=== PATIENT | male | born 1940 | race Caucasian/White ===

== ENCOUNTER → 2017-05-19 | Outpatient (CLI) | payer MEDICARE ==
[~2017-05-19] MED LIST: IOHEXOL 300 MG/ML 75 ML VIAL. IV ONE
[2017-05-19 17:27] LABS: CREATININE 1.4 mg/dL (0.7-1.3); GFR 49.4
--- NOTE | 2017-05-19 18:38 | RAD ---
Chest CTA History: Shortness of air, cough for 3 weeks Technique: After bolus of intravenous contrast, CT imaging was performed of the chest. Multiplanar reconstruction images to include MIP reconstruction images are submitted. Exposure: One or more of the following individualized dose reduction techniques were utilized for this examination: 1. Automated exposure control 2. Adjustment of the mA and/or kV according to patient size 3. Use of iterative reconstruction technique. Contrast: 60 cc Omnipaque 300 Comparison: None Findings: [ ] There is some motion degradation. There is somewhat suboptimal contrast opacification of the more distal and smaller branches of the pulmonary arteries. No convincing pulmonary embolism is identified. There is some mild atelectasis/very minimal consolidation with air bronchograms left lower lobe near the lung base. There is no significant pleural fluid. There is no pneumothorax. There is coronary calcification. Heart is enlarged. Thoracic aortic caliber is within normal limits without intraluminal flap. No significantly enlarged nodes are identified of the chest. Major airways are patent. Impression: 1. No convincing pulmonary embolism is identified, somewhat limited accurate evaluation of the more distal and smaller branches. There is some mild atelectasis/very minimal consolidation with air bronchograms left lower lobe near the base. 2. There is coronary calcification. Heart is enlarged. Electronically signed by: Alfonso Kay MD (05/19/2017 6:35 PM) [facility]
== END | disposition home or self-care (01) ==
LOC: RAD 16:37
PROVIDERS: ATTEND Family Medicine
DX: I51.7 Cardiomegaly (principal); I25.10 Atherosclerotic heart disease of native coronary artery without angina pectoris; I10 Essential (primary) hypertension
CPT/HCPCS: 36415; 71275; 82565; Q9967

== ENCOUNTER → 2017-10-14 | Outpatient (CLI) | payer MEDICARE, BC ==
--- NOTE | 2017-10-14 14:38 | RAD ---
Examination: Right Lower Extremity Venous Doppler Ultrasound History: Right leg swellingfor 3 weeks Comparison: None Procedure: Billingsley scale, color flow 2D and spectal waveform analysis images are obtained with and without compression in the area of the common femoral vein, superficial femoral vein - femoral vein junction, main femoral vein (superficial femoral vein) and popliteal vein. Veins of the proximal calf are also imaged. Findings: There is normal duplex flow, color flow and compressibility of all visualized vein segments. No evidence of deep venous thrombus is present. Impression: No evidence of DVT in the visualized right lower extremity venous system. Electronically signed by: Lavon Ho MD (10/14/2017 2:34 PM) [id number]
== END | disposition home or self-care (01) ==
LOC: US 12:35
PROVIDERS: ATTEND Family Medicine
DX: M79.89 Other specified soft tissue disorders (principal); I10 Essential (primary) hypertension; I25.10 Atherosclerotic heart disease of native coronary artery without angina pectoris
CPT/HCPCS: 93971

== ENCOUNTER → 2017-10-28 | Outpatient (CLI) | payer MEDICARE, BC ==
[2017-10-28 08:39] LABS: HEMATOCRIT 37.6 % (39.0-53.0); HEMOGLOBIN 12.8 g/dL (13.0-17.5)
[2017-10-28 08:55] LABS: ALBUMIN 3.3 g/dL (3.4-5.0); CALCIUM 9.4 mg/dL (8.5-10.1); CREATININE 1.7 mg/dL (0.7-1.3); GFR 39.5; MAGNESIUM 1.8 mg/dL (1.8-2.4); PHOSPHORUS 3.1 mg/dL (2.6-4.7); POTASSIUM 4.3 mmol/L (3.5-5.1)
[2017-10-28 21:12] LABS: MICRO CREAT RATIO 4.3 mg/g creat (0.0-30.0); MICROALB RD UR 4.7 ug/mL (Not Estab.)
== END | disposition home or self-care (01) ==
LOC: LAB 07:36
PROVIDERS: ATTEND Internal Medicine Nephrology
DX: I12.9 Hypertensive chronic kidney disease with stage 1 through stage 4 chronic kidney disease, or unspecified chronic kidney disease (principal); N18.3 Chronic kidney disease, stage 3 (moderate); N14.0 Analgesic nephropathy; I25.10 Atherosclerotic heart disease of native coronary artery without angina pectoris; R60.0 Localized edema; Z68.35 Body mass index [BMI] 35.0-35.9, adult
CPT/HCPCS: 36415; 80069; 82043; 82570; 83735; 85014; 85018

== ENCOUNTER → 2018-05-11 | Outpatient (CLI) | payer MEDICARE, BC ==
[2018-05-11 10:56] LABS: CALCIUM 9.6 mg/dL (8.5-10.1); CREATININE 1.5 mg/dL (0.7-1.3); GFR 45.5; POTASSIUM 4.2 mmol/L (3.5-5.1)
--- NOTE | 2018-05-11 12:29 | RAD ---
MR#: [id number] Date of Study: 05/11/2018 Ordering Physician: RAHUL FARRELL, Referring Physician: RAHUL FARRELL Tech: Kaylah Brunson RDMS RVT APPROVED REPORT Patient Location: OUT-PATIENT Indications AAA Technically nondiagnostic abdominal aortic ultrasound scan due to body habitus and bowel gas. Duplex Results A/PTransverseLongitudinal Proximal Aorta 3.7cm Doppler VelocityWaveform Proximal Aorta 79.5 cm/secTriphasic Critical Notification Critical Value: No <Conclusion> Nondiagnostic ultrasound of the abdominal aorta for evaluation of aneurysm due to body habitus and анна wel gas. Signed by : Rahul Farrell, Electronically Approved : 05/11/2018 12:28:43
== END | disposition home or self-care (01) ==
LOC: US 10:01
PROVIDERS: ATTEND Internal Medicine Cardiovascular Disease
DX: I71.4 Abdominal aortic aneurysm, without rupture (principal); I12.9 Hypertensive chronic kidney disease with stage 1 through stage 4 chronic kidney disease, or unspecified chronic kidney disease; N18.3 Chronic kidney disease, stage 3 (moderate)
CPT/HCPCS: 36415; 76770; 80048; 80061; 83880

== ENCOUNTER → 2018-10-28 | Outpatient (CLI) | payer MEDICARE, BC ==
[2018-10-28 09:00] LABS: BASO % 0 % (0-3); EOS # 0.2 x10^3/uL (0.0-0.7); EOS % 3 % (0-3); HEMATOCRIT 38.8 % (39.0-53.0); HEMOGLOBIN 12.9 g/dL (13.0-17.5); LYMPH # 1.4 x10^3/uL (1.0-4.8); LYMPH % 28 % (24-48); MEAN CORPUSCULAR HEMOGLOBIN 33 pg (25-35); MEAN CORPUSCULAR HGB CONC 33 g/dL (31-37); MEAN CORPUSCULAR VOLUME 98 fL (79-100); MONO # 0.3 x10^3/uL (0.0-1.1); MONO % 7 % (0-9); NEUT % 62 % (31-73); PLATELET COUNT 232 x10^3/uL (140-400); RED BLOOD COUNT 3.95 x10^6/uL (4.30-5.70); RED CELL DISTRIBUTION WIDTH 14.3 % (11.5-14.5); WHITE BLOOD COUNT 4.8 x10^3/uL (4.0-11.0)
[2018-10-28 09:09] LABS: ALBUMIN 3.5 g/dL (3.4-5.0); CREATININE 1.5 mg/dL (0.7-1.3); GFR 45.5; MAGNESIUM 1.7 mg/dL (1.8-2.4); PHOSPHORUS 2.4 mg/dL (2.6-4.7); POTASSIUM 4.2 mmol/L (3.5-5.1)
[2018-10-28 13:07] LABS: CREATININE,RANDOM URINE 117.2 mg/dL (Not Establ.)
[2018-10-29 09:07] LABS: CALCIUM PTH 9.5 mg/dL (8.6-10.2); CREATININE PTH 1.38 mg/dL (0.76-1.27); PTH INTACT 30 pg/mL (15-65)
== END | disposition home or self-care (01) ==
LOC: LAB 07:55
PROVIDERS: ATTEND Internal Medicine Nephrology
DX: I12.9 Hypertensive chronic kidney disease with stage 1 through stage 4 chronic kidney disease, or unspecified chronic kidney disease (principal); N18.3 Chronic kidney disease, stage 3 (moderate); N14.0 Analgesic nephropathy; R60.0 Localized edema; Z68.34 Body mass index [BMI] 34.0-34.9, adult
CPT/HCPCS: 36415; 80069; 82570; 83735; 83970; 84156; 85025

== ENCOUNTER → 2018-10-28 | Outpatient (CLI) | payer MEDICARE, BC ==
[2018-10-28 09:11] LABS: ALBUMIN 3.5 g/dL (3.4-5.0); CALCIUM 8.9 mg/dL (8.5-10.1); CREATININE 1.5 mg/dL (0.7-1.3); GFR 45.5; POTASSIUM 4.2 mmol/L (3.5-5.1); TOTAL BILIRUBIN 0.4 mg/dL (0.2-1.0)
== END | disposition home or self-care (01) ==
LOC: LAB 07:50
PROVIDERS: ATTEND Internal Medicine Cardiovascular Disease
DX: I10 Essential (primary) hypertension (principal)
CPT/HCPCS: 36415; 80053; 80061

== ENCOUNTER → 2019-11-09 | Outpatient (CLI) | payer MEDICARE ==
[2019-11-09 09:51] LABS: ALBUMIN 3.4 g/dL (3.4-5.0); CALCIUM 9.7 mg/dL (8.5-10.1); CREATININE 1.8 mg/dL (0.7-1.3); GFR 36.8; MAGNESIUM 1.7 mg/dL (1.8-2.4); PHOSPHORUS 2.7 mg/dL (2.6-4.7); POTASSIUM 4.5 mmol/L (3.5-5.1); URIC ACID 5.4 mg/dL (3.5-7.2)
[2019-11-09 10:19] LABS: HEMATOCRIT 38.2 % (39.0-53.0)
[2019-11-09 13:58] LABS: CREATININE,RANDOM URINE 118.5 mg/dL (Not Establ.)
[2019-11-10 01:07] LABS: CALCIUM PTH 9.9 mg/dL (8.6-10.2); CREATININE PTH 1.58 mg/dL (0.76-1.27); PTH INTACT 20 pg/mL (15-65)
[2019-11-10 05:08] LABS: MICROALB RD UR 10.9 ug/mL (Not Estab.)
== END | disposition home or self-care (01) ==
LOC: LAB 08:25
PROVIDERS: ATTEND Internal Medicine Nephrology
DX: N17.9 Acute kidney failure, unspecified (principal); I12.9 Hypertensive chronic kidney disease with stage 1 through stage 4 chronic kidney disease, or unspecified chronic kidney disease; N18.3 Chronic kidney disease, stage 3 (moderate); R80.9 Proteinuria, unspecified; N14.0 Analgesic nephropathy; Z68.36 Body mass index [BMI] 36.0-36.9, adult
CPT/HCPCS: 36415; 80069; 82043; 82306; 82570; 83735; 83970; 84156; 84550; 85014; 85018

== ENCOUNTER → 2019-12-01 | Outpatient (CLI) | payer MEDICARE ==
[~2019-12-01] MED LIST changes: +AMLO10TA8 PO; +ASPI81TA59 PO; +BUPIVACAINE MPF 0.25% 10 ML VIAL. ONE; +FENO145T3 PO; -IOHEXOL 300 MG/ML 75 ML VIAL. IV ONE; +LEVO88TA4 PO; +LIDOCAINE 1% PF 30 ML VIAL. ONE; +LORA10TA3 PO; +LOSA100T14 PO; +MAGN400C PO; +MIRA50TA PO; +MONT10TA80 PO; +MULT-690 PO; +OMEP20TA8 PO; +TAMS0.4C97 PO
[2019-12-01 10:47] VITALS: BP 146/71
== END | disposition home or self-care (01) ==
LOC: SURG 09:43
PROVIDERS: ATTEND Anesthesiology
DX: M47.816 Spondylosis without myelopathy or radiculopathy, lumbar region (principal); I12.9 Hypertensive chronic kidney disease with stage 1 through stage 4 chronic kidney disease, or unspecified chronic kidney disease; N18.3 Chronic kidney disease, stage 3 (moderate); Z79.82 Long term (current) use of aspirin; Z79.899 Other long term (current) drug therapy
CPT/HCPCS: 64493; 64494; J2001; J3490

== ENCOUNTER → 2019-12-22 | Outpatient (CLI) | payer MEDICARE ==
[~2019-12-22] MED LIST changes: +AMLO-187 PO; -AMLO10TA8 PO; -BUPIVACAINE MPF 0.25% 10 ML VIAL. ONE; -LIDOCAINE 1% PF 30 ML VIAL. ONE
[2019-12-22 10:36] VITALS: BP 152/67
== END ==
LOC: SURG 09:57
PROVIDERS: ATTEND Anesthesiology
DX: Z01.818 Encounter for other preprocedural examination (principal); M47.26 Other spondylosis with radiculopathy, lumbar region; M51.36 Other intervertebral disc degeneration, lumbar region
CPT/HCPCS: 99214; G0463

== ENCOUNTER → 2020-05-03 | Day surgery (SDC) | payer MEDICARE, BC ==
[2020-05-03 11:13] VITALS: BP 166/70
[2020-05-03 12:10] LABS: BARBITURATES NEG (NEG); BENZODIAZEPINES NEG (NEG); CANNABINOIDS NEG (NEG); COCAINE NEG (NEG); METHADONE NEG (NEG); OPIATES NEG (NEG); PHENCYCLIDINE NEG (NEG)
[2020-05-03 12:16] LABS: AMPHETAMINE/METHAMPHETAMINE NEG (NEG)
== END | disposition home or self-care (01) ==
LOC: SURG 11:04
PROVIDERS: ATTEND Anesthesiology
DX: M54.6 Pain in thoracic spine (principal); I10 Essential (primary) hypertension; M47.816 Spondylosis without myelopathy or radiculopathy, lumbar region; M47.814 Spondylosis without myelopathy or radiculopathy, thoracic region; M46.00 Spinal enthesopathy, site unspecified; I12.9 Hypertensive chronic kidney disease with stage 1 through stage 4 chronic kidney disease, or unspecified chronic kidney disease; N18.30 Chronic kidney disease, stage 3 unspecified; I25.10 Atherosclerotic heart disease of native coronary artery without angina pectoris; Z98.890 Other specified postprocedural states; Z79.899 Other long term (current) drug therapy; Z79.82 Long term (current) use of aspirin
CPT/HCPCS: 36415; 80307; 99214; G0463

== ENCOUNTER → 2021-01-03 | Outpatient (CLI) | payer MEDICARE, BC ==
[2020-05-03 11:13] VITALS: BP 166/70
[~2021-01-03] MED LIST changes: +MIRA25TA PO; -MIRA50TA PO
== END ==
LOC: LAB 08:17
PROVIDERS: ATTEND Urology
DX: N40.1 Benign prostatic hyperplasia with lower urinary tract symptoms (principal)
CPT/HCPCS: 84153; G0103

== ENCOUNTER → 2021-03-26 | Outpatient (CLI) | payer MEDICARE, BC ==
[2020-05-03 11:13] VITALS: BP 166/70
[2021-03-26 11:17] LABS: HEMATOCRIT 38.4 % (39.0-53.0); HEMOGLOBIN 12.6 g/dL (13.0-17.5)
[2021-03-26 11:27] LABS: ALBUMIN 3.2 g/dL (3.4-5.0); CREATININE 1.7 mg/dL (0.7-1.3); GFR 39.1; PHOSPHORUS 2.9 mg/dL (2.6-4.7); POTASSIUM 4.1 mmol/L (3.5-5.1); URIC ACID 4.8 mg/dL (3.5-7.2)
[2021-03-27 14:13] LABS: CALCIUM PTH 9.4 mg/dL (8.6-10.2); CREATININE PTH 1.75 mg/dL (0.76-1.27); PTH INTACT 25 pg/mL (15-65)
== END ==
LOC: LAB 07:44
PROVIDERS: ATTEND Internal Medicine Nephrology
DX: N18.32 Chronic kidney disease, stage 3b (principal); R53.0 Neoplastic (malignant) related fatigue; E78.5 Hyperlipidemia, unspecified; E55.9 Vitamin D deficiency, unspecified; R80.9 Proteinuria, unspecified
CPT/HCPCS: 80069; 82043; 82306; 82570; 83970; 84156; 84550; 85014; 85018